=== PATIENT | female | born 1960 | race Caucasian/White ===

== ENCOUNTER 2023-03-06 09:49 | Outpatient (CLI) | payer BC | END 2023-03-06 09:50 | disposition home or self-care (01) | LOC: BICRAD 09:49 | PROVIDERS: ATTEND Anesthesiology Pain Medicine | DX: M16.11 Unilateral primary osteoarthritis, right hip (principal) ==

== ENCOUNTER 2023-03-20 07:40 | Outpatient (CLI) | payer BC | END 2023-03-20 07:41 | disposition home or self-care (01) | LOC: SCSMRI 07:40 | PROVIDERS: ATTEND Anesthesiology Pain Medicine | DX: M48.061 Spinal stenosis, lumbar region without neurogenic claudication (principal); M51.26 Other intervertebral disc displacement, lumbar region; Z98.890 Other specified postprocedural states | CPT/HCPCS: 72158; 82565 ==

== ENCOUNTER 2023-09-20 10:27 | Outpatient (CLI) | payer BC ==
[2023-09-20 12:29] LABS: Hematocrit 43.1 % (34.9-44.5); Hemoglobin 14.2 g/dL (12.0-15.5); Mean Corpuscular HGB CONC 32.9 g/dL (32.0-36.0); Mean Corpuscular Hemoglobin 27.7 pg (27.0-33.0); Mean Platelet Volume 11.4 fl (7.4-10.4); Platelet Count 393 10x3/uL (150-450); RBC Distribution Width 15.3 % (11.5-14.5); Red Blood Cell (RBC) Count 5.13 10x6/uL (3.90-5.03); White Blood Cell (WBC) Count 7.5 10x3/uL (3.5-10.5)
[2023-09-20 12:36] LABS: PTT 27.1 sec (22.0-33.0); Prothrombin Time 10.3 sec (9.5-12.1)
== END 2023-09-20 10:28 | disposition home or self-care (01) ==
LOC: LABBT 10:27
PROVIDERS: ATTEND Neurological Surgery
DX: Z01.818 Encounter for other preprocedural examination (principal); M48.061 Spinal stenosis, lumbar region without neurogenic claudication; M51.36 Other intervertebral disc degeneration, lumbar region
CPT/HCPCS: 85027; 85610; 85730; 93005; 93010

== ENCOUNTER 2023-09-24 05:49 | Day surgery (SDC) | payer BC ==
[2023-09-20 11:33] VITALS: BMI 34.7
[2023-09-24] MEDS ORDERED: Vancomycin 1 GM VIAL ONE (06:10)
[2023-09-24] MEDS ORDERED: EPINEPHrine 1 MG/ML VIAL ONE (06:10)
[2023-09-24] MEDS ORDERED: Thrombin 5000 UNITS/5 ML VIAL ONE (06:11)
[2023-09-24] MEDS ORDERED: Bupivacaine PF 0.5% 30 ML VIAL ONE (06:11)
[2023-09-24] MEDS ORDERED: Lidocaine 1% PF 5 ML VIAL ONE ×2 (06:31→07:02)
[2023-09-24] MEDS ORDERED: fentaNYL PF 100 MCG/2 ML SYRINGE ONE (06:31)
[2023-09-24] MEDS ORDERED: PROPOFOL 20 ML ONE (06:32)
[2023-09-24] MEDS ORDERED: Rocuronium Bromide 50 MG/5 ML VIAL ONE (06:37)
[2023-09-24] MEDS ORDERED: Sodium Chloride 0.9% 100 ML ONE ×2 (06:45→11:37)
[2023-09-24] MEDS ORDERED: CEFAZOLIN 2 GM VIAL ONE ×2 (06:45→11:37)
[2023-09-24] MEDS ORDERED: Midazolam HCl 2 mg/2 ml Vial ONE (06:53)
[2023-09-24] MEDS ORDERED: Famotidine/PF 20 mg/2ml Vial ONE (06:54)
[2023-09-24] MEDS ORDERED: Dexmedetomidine 200 MCG/2 ML VIAL ONE (07:00)
[2023-09-24] MEDS ORDERED: ePHEDrine Sulfate 50 MG/10 ML VIAL ONE ×2 (07:02→07:50)
[2023-09-24] MEDS ORDERED: PROPOFOL 200 MG/20 ML VIAL ONE (07:02)
[2023-09-24] MEDS ORDERED: Rocuronium Bromide 10 MG/ML (10ML VIAL) ONE ×2 (07:02→09:09)
[2023-09-24] MEDS ORDERED: Ondansetron PF 4 MG/2 ML Vial ONE ×2 (07:02→09:21)
[2023-09-24] MEDS ORDERED: PHENYLEPHRINE-NS 100 MCG/ML 10 ML SYRINGE ONE ×2 (07:02→08:56)
[2023-09-24] MEDS ORDERED: Dexamethasone 20 MG/5 ML VIAL ONE (07:02)
[2023-09-24] MEDS ORDERED: MINERAL OIL/WHITE PETROLATUM 3.5 GM TUBE ONE (07:07)
[2023-09-24] MEDS ORDERED: fentaNYL 50 mcg/mL 1 mL Vial ONE ×2 (07:52→10:38)
[2023-09-24] MEDS ORDERED: SUGAMMADEX SODIUM 200 MG/2 ML VIAL ONE (09:09)
[2023-09-24] MEDS ORDERED: Dexamethasone 4 mg/ml Vial ONE (09:21)
[2023-09-24] MEDS ORDERED: HYDROcodone/Acetaminophen 5/325 mg Tablet ONE (11:09)
== END 2023-09-24 12:30 | disposition home or self-care (01) ==
LOC: SDC 05:49
PROVIDERS: ATTEND Neurological Surgery
PROC: 01NB0ZZ Release Lumbar Nerve, Open Approach (ICD-10-PCS; principal; 2023-09-24)
DX: M48.062 Spinal stenosis, lumbar region with neurogenic claudication (principal); M51.26 Other intervertebral disc displacement, lumbar region; I10 Essential (primary) hypertension; E78.00 Pure hypercholesterolemia, unspecified; Z90.89 Acquired absence of other organs; Z79.899 Other long term (current) drug therapy
CPT/HCPCS: J0171; J1100; J2250; J2405; J2704; J3010; J3370; J3490; S0020; S0028